=== PATIENT | female | born 1995 | race American Indian/Alaskan Native ===

== ENCOUNTER 2019-07-13 13:04 | Outpatient (CLI) | payer MEDICAID ==
[2019-07-13] MEDS ORDERED: ACETAMINOPHEN 325 MG TAB PO ONE (14:53)
[2019-07-13 15:46] LABS: Bacteria,Urine 2+ /HPF (Negative); Bilirubin,Urine NEG (Negative); Blood,Urine NEG (Negative); Color,Urine Yellow (Yellow); Protein,Urine <15 mg/dL mg/dL (Negative); Urobilinogen,Urine < 2.0 mg/dL (<2.0)
[2019-07-13 15:48] VITALS: BP 99/64
== END 2019-07-13 16:03 | disposition home or self-care (01) ==
LOC: TRG 13:04
PROVIDERS: ATTEND Obstetrics & Gynecology
DX: O47.03 False labor before 37 completed weeks of gestation, third trimester (principal); Z3A.29 29 weeks gestation of pregnancy
CPT/HCPCS: 81001